=== PATIENT | male | born 1995 | race Caucasian/White ===

== ENCOUNTER 2016-09-28 15:46 | Emergency (ER) | payer SELFPAY ==
[~2016-09-28] VITALS: Ht 182.9 cm; Wt 82.0 kg
[2016-09-28] MEDS ORDERED: DIPHENHYDRAMINE 25 MG CAPSULE PO ONE (16:00)
[2016-09-28] MEDS ORDERED: FAMOTIDINE 20 MG TABLET PO ONE (16:00)
[2016-09-28] MEDS ORDERED: EPINEPHRINE 1 MG/ML, 1ML ONE (16:11)
[2016-09-28] MEDS ORDERED: FAMOTIDINE 20 MG/2 ML ONE (16:20)
[2016-09-28] MEDS ORDERED: DIPHENHYDRAMINE 50 MG/ML, 1ML ONE (16:20)
[2016-09-28] MEDS ORDERED: methylPREDNISolone SOD SUCC 125 MG/2 ML ONE (16:25)
[2016-09-28] MEDS ORDERED: methylPREDNISolone SOD SUCC 125 MG/2 ML IVPush ONE (16:30)
[2016-09-28] MEDS ORDERED: PLEASE ENTER ALLERGIES MC SCH ×2 (16:30)
[2016-09-28] MEDS ORDERED: DIPHENHYDRAMINE 50 MG/ML, 1ML IVPush ONE (16:30)
[2016-09-28] MEDS ORDERED: SODIUM CHLORIDE FLUSH 10ML SYR IVF ONE (16:30)
[2016-09-28] MEDS ORDERED: EPINEPHRINE 1 MG/ML, 1ML IM ONE (16:30)
[2016-09-28] MEDS ORDERED: SODIUM CHLORIDE 0.9% 1,000ML IVBOLUS ONE (16:30)
[2016-09-28] MEDS ORDERED: FAMOTIDINE 20 MG/2 ML IVPush ONE (16:30)
[2016-09-28] MEDS ORDERED: EPINEPHRINE 1 MG/ML, 1ML SQ ONE (16:30)
[2016-09-28] MEDS ORDERED: PLEASE ENTER HEIGHT AND WEIGHT MC SCH (16:30)
[2016-09-28] MEDS ORDERED: CARB200T4 PO (16:55)
[2016-09-28] MEDS ORDERED: ALBUTEROL/IPRATROPIUM 2.5MG/0.5MG, 3 ML NPPB ONE (17:00)
[2016-09-28] MEDS ORDERED: ALBUTEROL/IPRATROPIUM 2.5MG/0.5MG, 3 ML ONE (17:48)
[2016-09-28 18:27] VITALS: BP 166/81
== END 2016-09-28 18:35 | disposition home or self-care (01) ==
LOC: EDSEX 15:46 → ED 18:02
DX: Z76.0 Encounter for issue of repeat prescription (principal); T78.2XXA Anaphylactic shock, unspecified, initial encounter
CPT/HCPCS: 93005; 94640; 96372; 96374; 96375; 99284; J0171; J1200; J2930; J7030; J7620; S0028

== ENCOUNTER 2018-05-22 14:24 | Emergency (ER) | payer MEDICAID ==
[~2018-05-22] VITALS: Ht 182.9 cm; Wt 95.0 kg
[~2018-05-22 14:24] MED LIST: CARB200T4 PO
[2018-05-22 14:25] VITALS: BP 157/82
== END 2018-05-22 15:30 | disposition home or self-care (01) ==
LOC: ED 15:15
DX: J02.8 Acute pharyngitis due to other specified organisms (principal); B97.89 Other viral agents as the cause of diseases classified elsewhere; F17.200 Nicotine dependence, unspecified, uncomplicated
CPT/HCPCS: 87081; 87880; 99284

== ENCOUNTER 2018-12-17 16:19 | Emergency (ER) | payer SELFPAY ==
[~2018-12-17] VITALS: Ht 185.4 cm; Wt 102.1 kg
[2018-12-17 16:21] VITALS: BP 147/96
[2018-12-17] MEDS ORDERED: DIPHENHYDRAMINE 25 MG CAPSULE ONE (16:34)
[2018-12-17] MEDS ORDERED: DIPHENHYDRAMINE 25 MG CAPSULE PO ONE (17:00)
== END 2018-12-17 16:49 | disposition home or self-care (01) ==
LOC: ED 16:38
DX: T22.10XA Burn of first degree of shoulder and upper limb, except wrist and hand, unspecified site, initial encounter (principal); T31.0 Burns involving less than 10% of body surface; X08.8XXA Exposure to other specified smoke, fire and flames, initial encounter; Y93.89 Activity, other specified; Y92.89 Other specified places as the place of occurrence of the external cause; Y99.8 Other external cause status
CPT/HCPCS: 99281

== ENCOUNTER 2019-07-28 06:24 | Emergency (ER) | payer MEDICAID ==
[~2019-07-28] VITALS: Ht 185.4 cm; Wt 103.8 kg
[2019-07-28 06:27] VITALS: BP 152/81
[2019-07-28] MEDS ORDERED: ONDANSETRON ODT 4 MG PO ONE (07:00)
[2019-07-28] MEDS ORDERED: FAMOTIDINE 20 MG TABLET PO ONE (07:00)
[2019-07-28] MEDS ORDERED: FAMOTIDINE 20 MG TABLET ONE ×2 (07:08→07:25)
[2019-07-28] MEDS ORDERED: ONDANSETRON ODT 4 MG ONE (07:09)
[2019-07-28 07:18] LABS: BASOPHILS # (AUTO) 0.01 x10^3/uL (0-0.1); BASOPHILS % (AUTO) 0 % (0-1); EOSINOPHILS # (AUTO) 0.39 x10^3/uL (0-0.4); EOSINOPHILS % (AUTO) 3 % (1-7); LYMPHOCYTES % (AUTO) 8 % (22-44); MD NO; MEAN CORPUSCULAR HEMOGLOBIN 28.1 pg (27.5-34.5); MEAN CORPUSCULAR HGB CONC 33.6 g/dL (33.2-36.2); MEAN CORPUSCULAR VOLUME 83.6 fL (81-97); MEAN PLATELET VOLUME 8.1 fL (7.4-10.4); MONOCYTES % (AUTO) 4 % (2-9); NEUTROPHILS # (AUTO) 10.11 x10^3/uL (1.8-6.8); NEUTROPHILS % (AUTO) 85 % (42-75); PLATELET COUNT 243 x10^3/uL (130-400); RED BLOOD COUNT 5.79 x10^6/uL (4.38-5.82)
[2019-07-28 07:29] LABS: MICROSCOPIC NOT IND
[2019-07-28 07:30] LABS: ALANINE AMINOTRANSFERASE 54 U/L (12-78); ALBUMIN 3.9 g/dL (3.4-5.0); ANION GAP 4 mmol/L (5-15); CALCIUM 8.5 mg/dL (8.5-10.1); CHLORIDE 109 mmol/L (98-107); CREATININE 0.99 mg/dL (0.7-1.3)
[2019-07-28 07:32] LABS: CULTURE INDICATED? NO
[2019-07-28 07:32] LABS: ALKALINE PHOSPHATASE 63 U/L (45-117); BILIRUBIN,TOTAL 0.5 mg/dL (0.2-1.0); TOTAL PROTEIN 7.7 g/dL (6.4-8.2)
--- NOTE | 2019-07-28 07:47 | NUR ---
RE-EVALUATING PT
== END 2019-07-28 08:00 | disposition home or self-care (01) ==
LOC: ED 07:45
DX: R11.2 Nausea with vomiting, unspecified (principal); R19.7 Diarrhea, unspecified; R10.84 Generalized abdominal pain; F17.210 Nicotine dependence, cigarettes, uncomplicated
CPT/HCPCS: 36415; 80053; 81003; 85025; 99283; Q0162